=== PATIENT | female | born 1960 | race African-American/Black ===

== ENCOUNTER 2020-06-13 19:30 | Inpatient (IN) | payer MEDICAID ==
[~2020-06-13] VITALS: Ht 162.6 cm; Wt 66.7 kg
[2020-06-13] MEDS ORDERED: SODIUM CHLORIDE 0.9% 1,000 ML IV ONE ×2 (20:47→21:29)
[2020-06-13 20:53] LABS: BASOPHILS % 0.5 % (0.0-2.0); EOSINOPHILS % 0.1 % (0.0-5.0); HEMATOCRIT. 36.3 % (36.0-48.0); LYMPHOCYTES % 9.9 % (20.0-50.0); MEAN CORPUSCULAR HEMOGLOBIN 29.5 pg (28.0-32.0); MEAN PLATELET VOLUME 7.7 fl (7.4-10.4); MONOCYTES % 3.2 % (2.0-8.0); NEUTROPHILS % 86.3 % (40.0-76.0); PLATELET 295 x1000/uL (130-400); RED BLOOD CELL COUNT 4.08 mill/uL (4.2-5.4); RED CELL DISTRIBUTION WIDTH 13.8 % (11.6-14.6)
[2020-06-13 20:55] LABS: CHLORIDE 95 mEq/L (98-107)
[2020-06-13 20:59] LABS: ETHANOL BLOOD < 10 mg/dL
[2020-06-13] MEDS ORDERED: INSULIN REGULAR (HUMULIN R) UD 100 UNITS/ML SYR SUBCUT ONE (21:30)
[2020-06-13] MEDS ORDERED: IOHEXOL-350 100 ML BOTTLE ONE (21:52)
[2020-06-13] MEDS ORDERED: INSULIN REGULAR (HUMULIN R) 300UNITS/3ML SUBCUT NR (22:30)
[2020-06-14] MEDS ORDERED: INSULIN REGULAR (HUMULIN R) 300UNITS/3ML SUBCUT NR (01:00)
[2020-06-14 01:11] LABS: CLARITY URINE CLEAR (CLEAR); COLOR URINE YELLOW (YELLOW); KETONES URINE TRACE (NEGATIVE); LEUKOCYTE ESTERASE URINE NEGATIVE (NEGATIVE); NITRITE URINE NEGATIVE (NEGATIVE); OCCULT BLOOD URINE NEGATIVE (NEGATIVE); PROTEIN URINE NEGATIVE (NEGATIVE); SPECIFIC GRAVITY URINE 1.035 (1.005-1.030); UROBILINOGEN URINE 0.2 E.U./dL (0.2-1.0)
[2020-06-14 01:21] LABS: *AMPHETAMINES SCREEN URINE NEGATIVE (NEGATIVE); *BARBITURATES SCREEN URINE NEGATIVE (NEGATIVE); *BENZODIAZEPINES SCREEN URINE NEGATIVE (NEGATIVE); *COCAINE SCREEN URINE NEGATIVE (NEGATIVE); METHADONE URINE SCREEN NEGATIVE (NEGATIVE); OPIATES URINE SCREEN NEGATIVE (NEGATIVE); PHENCYCLIDINE URINE SCREEN NEGATIVE (NEGATIVE)
[2020-06-14 01:22] LABS: CANNABINOID URINE SCREEN NEGATIVE (NEGATIVE)
[2020-06-14 08:00] VITALS: BP 130/73
[2020-06-14 08:05] VITALS: BP 130/73
[2020-06-14] MEDS ORDERED: DEXTROSE 50% WATER 50ML SYRINGE IV PRN (08:15)
[2020-06-14] MEDS: ACETAMINOPHEN 325MG TABLET PO PRN ×3 (09:41→21:16)
[2020-06-14 10:50] LABS: LDL CHOLESTEROL 149 mg/dL (5-100)
[2020-06-14 10:52] LABS: HDL CHOLESTEROL 71 mg/dL (40-59)
[2020-06-14 12:00] VITALS: BP 122/65
[2020-06-14] MEDS: BLOOD SUGAR DIAGNOSTIC STRIP TEST SCH ×3 (12:33→21:08)
[2020-06-14] MEDS: SODIUM CHLORIDE 0.9% 1,000 ML IV SCH ×2 (12:43→19:00)
[2020-06-14] MEDS: INSULIN LISPRO 100 UNITS/ML SUBCUT SCH ×3 (12:43→21:24)
[2020-06-14] MEDS ORDERED: ONDANSETRON HCL 4MG/2ML INJ IV PRN (15:00)
[2020-06-14 16:00] VITALS: BP 147/78
[2020-06-14] MEDS ORDERED: INSULIN GLARGINE UD 100 UNITS/ML SYR SUBCUT NR (16:30)
[2020-06-14] MEDS: KETOROLAC 15MG/ML VIAL IV PRN (17:11)
[2020-06-14 20:00] VITALS: BP_SYST 140; BP_SYST 142; BP_SYST 157; BP_DIAS 69; BP_DIAS 76; BP_DIAS 88
[2020-06-14] MEDS ORDERED: ATORVASTATIN CALCIUM 20MG TABLET PO SCH (21:00)
[2020-06-15] VITALS (9 sets, daily range): BP systolic 138–171; BP diastolic 72–87
[2020-06-15] MEDS: SODIUM CHLORIDE 0.9% 1,000 ML IV SCH ×2 (00:20→10:42)
[2020-06-15] MEDS: ACETAMINOPHEN 325MG TABLET PO PRN ×2 (03:45→09:50)
[2020-06-15] MEDS: BLOOD SUGAR DIAGNOSTIC STRIP TEST SCH ×3 (06:20→17:40)
[2020-06-15 06:29] LABS: BASOPHILS % 0.5 % (0.0-2.0); HEMATOCRIT. 29.7 % (36.0-48.0); HEMOGLOBIN. 10.1 g/dL (12.0-16.0); LYMPHOCYTES % 50.2 % (20.0-50.0); MEAN CORPUSCULAR HEMOGLOBIN 29.6 pg (28.0-32.0); MEAN CORPUSCULAR VOLUME 87.3 fL (81.0-99.0); MEAN PLATELET VOLUME 7.7 fl (7.4-10.4); MONOCYTES % 10.3 % (2.0-8.0); PLATELET 245 x1000/uL (130-400)
[2020-06-15 06:31] LABS: CHLORIDE 104 mEq/L (98-107)
[2020-06-15] MEDS: INSULIN LISPRO 100 UNITS/ML SUBCUT SCH ×3 (06:34→17:46)
[2020-06-15] MEDS ORDERED: INSULIN GLARGINE UD 100 UNITS/ML SYR SUBCUT SCH ×2 (10:00→22:00)
[2020-06-15] MEDS ORDERED: LISINOPRIL 5MG TABLET PO SCH (11:00)
[2020-06-15] MEDS ORDERED: METF-416 MT (12:07)
[2020-06-15] MEDS ORDERED: LANTUSUD SUBCUT (12:07)
[2020-06-15] MEDS ORDERED: LOSA50TA41 MT (12:07)
[2020-06-15] MEDS ORDERED: LIP40 PO (12:07)
[2020-06-15] MEDS: KETOROLAC 15MG/ML VIAL IV PRN (12:13)
[2020-06-15] MEDS ORDERED: SUMATRIPTAN SUCCINATE 6MG/0.5ML VIAL SUBCUT NR (14:00)
[2020-06-15] MEDS ORDERED: LOSARTAN POTASSIUM 50 MG TABLET PO SCH (15:30)
[2020-06-15] MEDS ORDERED: CLONIDINE 0.1MG TABLET PO NR (19:00)
[2020-06-15] MEDS ORDERED: ATORVASTATIN CALCIUM 40MG TABLET PO SCH (21:00)
== END 2020-06-15 20:40 | disposition home or self-care (01) | DRG 48 ==
LOC: ER 19:30 → MICUSO 23:47 → 5WST 06-14 02:22
PROVIDERS: ADMIT Internal Medicine; ATTEND Internal Medicine
DX: G90.8 Other disorders of autonomic nervous system (principal); E11.65 Type 2 diabetes mellitus with hyperglycemia; E78.5 Hyperlipidemia, unspecified; E87.1 Hypo-osmolality and hyponatremia; E87.5 Hyperkalemia; E87.8 Other disorders of electrolyte and fluid balance, not elsewhere classified; E86.0 Dehydration; I10 Essential (primary) hypertension; R19.7 Diarrhea, unspecified; E66.9 Obesity, unspecified; Z68.25 Body mass index [BMI] 25.0-25.9, adult; E11.00 Type 2 diabetes mellitus with hyperosmolarity without nonketotic hyperglycemic-hyperosmolar coma (NKHHC)
CPT/HCPCS: 36415; 71045; 71275; 80048; 80053; 80061; 80305; 80320; 81003; 82947; 82962; 83036; 84443; 84484; 85025; 85379; 93005; 93306; 93880; 96372; 99285; J1815; J1885; J2405; J3030; J7030; Q9967; G0480

== ENCOUNTER 2021-12-23 18:39 | Inpatient (IN) | payer MEDICAID, OTHER ==
[~2021-12-23] VITALS: Ht 162.6 cm; Wt 69.1 kg
[~2021-12-23 18:39] MED LIST: LANTUSUD SUBCUT; LIP40 PO; LOSA50TA41 MT; METF-416 MT
[2021-12-23 19:34] LABS: BASOPHILS % 0.8 % (0.0-2.0); EOSINOPHILS % 0.6 % (0.0-5.0); HEMATOCRIT. 31.8 % (36.0-48.0); HEMOGLOBIN. 10.7 g/dL (12.0-16.0); LYMPHOCYTES % 20.9 % (20.0-50.0); MEAN CORPUSCULAR VOLUME 89.3 fL (81.0-99.0); MONOCYTES % 7.5 % (2.0-8.0); NEUTROPHILS % 70.2 % (40.0-76.0); PLATELET 365 x1000/uL (130-400); RED BLOOD CELL COUNT 3.56 mill/uL (4.2-5.4); RED CELL DISTRIBUTION WIDTH 15.1 % (11.6-14.6)
[2021-12-23 19:39] LABS: CHLORIDE 103 mEq/L (98-107)
[2021-12-23] MEDS ORDERED: ACETAMINOPHEN 325MG TABLET PO ONE (20:00)
[2021-12-23 20:43] LABS: CLARITY URINE CLOUDY (CLEAR); COLOR URINE YELLOW (YELLOW); KETONES URINE NEGATIVE (NEGATIVE); LEUKOCYTE ESTERASE URINE NEGATIVE (NEGATIVE); NITRITE URINE NEGATIVE (NEGATIVE); OCCULT BLOOD URINE NEGATIVE (NEGATIVE); PROTEIN URINE TRACE (NEGATIVE); UROBILINOGEN URINE 0.2 E.U./dL (0.2-1.0)
[2021-12-23] MEDS ORDERED: SODIUM CHLORIDE 0.9% 1,000 ML IV ONE (21:15)
[2021-12-23] MEDS ORDERED: AZITHROMYCIN 500MG/250ML 250 ML IV ONE (22:45)
[2021-12-23] MEDS ORDERED: CEFTRIAXONE 1 G PREMIX 50 ML IV ONE (22:45)
[2021-12-23] MEDS ORDERED: AZITHROMYCIN 500 MG in DEXT 5% WATER 250 ML IV NR (23:15)
[2021-12-24] MEDS ORDERED: ONDANSETRON HCL 4MG/2ML INJ IV PRN (01:30)
[2021-12-24] MEDS ORDERED: HYDROCODONE/ACETAMINOPHEN 5/325MG TABLET PO PRN (08:00)
[2021-12-24] MEDS ORDERED: NALOXONE HCL 0.4MG/ML VIAL IV PRN (08:15)
[2021-12-24] MEDS ORDERED: CLONIDINE 0.2MG TABLET PO PRN (21:15)
[2021-12-24 22:38] VITALS: BP 127/65
[2021-12-24] MEDS ORDERED: DEXTROSE 50% WATER 50ML SYRINGE IV PRN (23:15)
[2021-12-24] MEDS ORDERED: ACETAMINOPHEN 325MG TABLET PO PRN (23:15)
[2021-12-25 04:00] VITALS: BP 128/65
[2021-12-25] MEDS: INSULIN LISPRO 100 UNITS/ML SUBCUT SCH ×2 (05:41→13:21)
[2021-12-25] MEDS: BLOOD SUGAR DIAGNOSTIC STRIP TEST SCH ×2 (05:41→12:10)
[2021-12-25 07:26] LABS: BASOPHILS % 0.6 % (0.0-2.0); EOSINOPHILS % 2.9 % (0.0-5.0); HEMATOCRIT. 30.2 % (36.0-48.0); LYMPHOCYTES % 40.3 % (20.0-50.0); MEAN CORPUSCULAR HEMOGLOBIN 29.3 pg (28.0-32.0); MEAN CORPUSCULAR VOLUME 88.5 fL (81.0-99.0); MEAN PLATELET VOLUME 7.1 fl (7.4-10.4); MONOCYTES % 13.3 % (2.0-8.0); NEUTROPHILS % 42.9 % (40.0-76.0); PLATELET 358 x1000/uL (130-400); RED BLOOD CELL COUNT 3.42 mill/uL (4.2-5.4); RED CELL DISTRIBUTION WIDTH 15.5 % (11.6-14.6)
[2021-12-25] MEDS ORDERED: METFORMIN HCL 500MG TABLET PO SCH (07:40)
[2021-12-25 07:49] LABS: CHLORIDE 108 mEq/L (98-107)
[2021-12-25 07:59] LABS: LDL CHOLESTEROL 57 mg/dL (5-100)
[2021-12-25 08:00] VITALS: BP 165/82
[2021-12-25 08:02] LABS: HDL CHOLESTEROL 63 mg/dL (40-59)
[2021-12-25] MEDS ORDERED: LOSARTAN POTASSIUM 50 MG TABLET PO SCH ×2 (09:00)
[2021-12-25 12:00] VITALS: BP 149/80
[2021-12-25 13:34] VITALS: BP 149/80
[2021-12-25] MEDS ORDERED: ATORVASTATIN CALCIUM 40MG TABLET PO SCH ×2 (21:00)
== END 2021-12-25 15:30 | disposition home or self-care (01) | DRG 420 ==
LOC: ER 18:39 → 8WST 23:22 → ENRESERV 12-24 20:51
PROVIDERS: ADMIT Internal Medicine; ATTEND Internal Medicine
DX: E11.649 Type 2 diabetes mellitus with hypoglycemia without coma (principal); D64.9 Anemia, unspecified; S05.11XA Contusion of eyeball and orbital tissues, right eye, initial encounter; W18.39XA Other fall on same level, initial encounter; Z20.822 Contact with and (suspected) exposure to COVID-19; I10 Essential (primary) hypertension; Z79.4 Long term (current) use of insulin; Y93.89 Activity, other specified; Y92.89 Other specified places as the place of occurrence of the external cause; Y99.8 Other external cause status; Z79.84 Long term (current) use of oral hypoglycemic drugs; Z79.899 Other long term (current) drug therapy
CPT/HCPCS: 36415; 71045; 80048; 80061; 81003; 82962; 83036; 83880; 84484; 85025; 87426; 93005; 96361; 96365; 96367; 99285; J0456; J0696; J1815; J2405; J7030; J7060

== ENCOUNTER 2022-10-19 18:29 | Inpatient (IN) | payer OTHER ==
[~2022-10-19] VITALS: Ht 162.6 cm; Wt 65.0 kg
[~2022-10-19 18:29] MED LIST changes: -LANTUSUD SUBCUT
[2022-10-19] MEDS ORDERED: SODIUM CHLORIDE 0.9% 1,000 ML IV ONE (19:30)
[2022-10-19 21:45] LABS: BASOPHILS % 0.4 % (0.0-2.0); EOSINOPHILS % 0.2 % (0.0-5.0); HEMATOCRIT. 33.2 % (36.0-48.0); HEMOGLOBIN. 11.1 g/dL (12.0-16.0); LYMPHOCYTES % 31.1 % (20.0-50.0); MEAN CORPUSCULAR HEMOGLOBIN 29.6 pg (28.0-32.0); MEAN CORPUSCULAR VOLUME 88.8 fL (81.0-99.0); MEAN PLATELET VOLUME 7.1 fl (7.4-10.4); NEUTROPHILS % 60.3 % (40.0-76.0); PLATELET 383 x1000/uL (130-400); RED BLOOD CELL COUNT 3.74 mill/uL (4.2-5.4); RED CELL DISTRIBUTION WIDTH 13.6 % (11.6-14.6)
[2022-10-19 21:53] LABS: CHLORIDE 101 mEq/L (98-107); INR 1.1; PROTHROMBIN TIME 11.4 sec (9.6-11.0)
[2022-10-20] VITALS (11 sets, daily range): BP systolic 114–167; BP diastolic 66–95
[2022-10-20] MEDS ORDERED: LORAZEPAM 0.5MG TABLET PO PRN (13:15)
[2022-10-20] MEDS ORDERED: ACETAMINOPHEN 325MG TABLET PO PRN (13:15)
[2022-10-20] MEDS ORDERED: HYDROCODONE/ACETAMINOPHEN 10/325MG TABLET PO PRN (13:15)
[2022-10-20] MEDS ORDERED: HYDROCODONE/ACETAMINOPHEN 5/325MG TABLET PO PRN (13:15)
[2022-10-20] MEDS ORDERED: ONDANSETRON HCL 4MG/2ML INJ IV PRN (13:15)
[2022-10-20] MEDS ORDERED: IPRATROPIUM/ALBUTEROL 0.5-3(2.5)MG/3ML NEB HHN PRN (13:15)
[2022-10-20] MEDS ORDERED: NALOXONE HCL 0.4MG/ML VIAL IV PRN (13:30)
[2022-10-20] MEDS ORDERED: DEXTROSE 50% WATER 50ML SYRINGE IV PRN (14:45)
[2022-10-20] MEDS: ACETAMINOPHEN 325MG TABLET PO PRN ×2 (16:00→23:04)
[2022-10-20] MEDS: LOSARTAN POTASSIUM 50 MG TABLET PO SCH (16:01)
[2022-10-20] MEDS: BLOOD SUGAR DIAGNOSTIC STRIP TEST SCH ×2 (17:55→21:24)
[2022-10-20] MEDS: INSULIN LISPRO 100 UNITS/ML SUBCUT SCH ×2 (17:58→22:06)
[2022-10-20] MEDS ORDERED: ATORVASTATIN CALCIUM 40MG TABLET PO SCH (21:00)
[2022-10-20 22:44] LABS: CLARITY URINE CLEAR (CLEAR); COLOR URINE YELLOW (YELLOW); KETONES URINE NEGATIVE (NEGATIVE); LEUKOCYTE ESTERASE URINE NEGATIVE (NEGATIVE); NITRITE URINE NEGATIVE (NEGATIVE); OCCULT BLOOD URINE NEGATIVE (NEGATIVE); PROTEIN URINE 3+ (NEGATIVE); SPECIFIC GRAVITY URINE 1.015 (1.005-1.030); UROBILINOGEN URINE 0.2 E.U./dL (0.2-1.0)
[2022-10-20 23:07] LABS: *AMPHETAMINES SCREEN URINE NEGATIVE (NEGATIVE); *BARBITURATES SCREEN URINE NEGATIVE (NEGATIVE); *BENZODIAZEPINES SCREEN URINE NEGATIVE (NEGATIVE); *COCAINE SCREEN URINE NEGATIVE (NEGATIVE); CANNABINOID URINE SCREEN NEGATIVE (NEGATIVE); METHADONE URINE SCREEN NEGATIVE (NEGATIVE); OPIATES URINE SCREEN NEGATIVE (NEGATIVE); PHENCYCLIDINE URINE SCREEN NEGATIVE (NEGATIVE)
[2022-10-21 00:19] VITALS: BP 118/68
[2022-10-21 02:19] VITALS: BP 123/71
[2022-10-21 04:00] VITALS: BP 106/71
[2022-10-21] MEDS: BLOOD SUGAR DIAGNOSTIC STRIP TEST SCH ×2 (06:11→13:07)
[2022-10-21] MEDS: ACETAMINOPHEN 325MG TABLET PO PRN ×2 (06:12→10:50)
[2022-10-21] MEDS ORDERED: PANTOPRAZOLE 40MG DR TABLET PO SCH (06:50)
[2022-10-21 07:03] LABS: BASOPHILS % 0.4 % (0.0-2.0); EOSINOPHILS % 1.5 % (0.0-5.0); HEMATOCRIT. 29.7 % (36.0-48.0); HEMOGLOBIN. 10.1 g/dL (12.0-16.0); MEAN CORPUSCULAR VOLUME 88.6 fL (81.0-99.0); MEAN PLATELET VOLUME 7.5 fl (7.4-10.4); MONOCYTES % 9.1 % (2.0-8.0); PLATELET 328 x1000/uL (130-400); RED BLOOD CELL COUNT 3.36 mill/uL (4.2-5.4); RED CELL DISTRIBUTION WIDTH 13.5 % (11.6-14.6)
[2022-10-21 07:31] LABS: T4 FREE 0.86 ng/dL (0.76-1.46)
[2022-10-21 08:24] VITALS: BP 131/79
[2022-10-21] MEDS: LOSARTAN POTASSIUM 50 MG TABLET PO SCH (08:56)
[2022-10-21] MEDS: INSULIN LISPRO 100 UNITS/ML SUBCUT SCH ×2 (08:57→14:18)
== END 2022-10-21 15:41 | disposition home or self-care (01) | DRG 199 ==
LOC: ER 18:29 → 3WST 10-20 01:41 → EDBEDREQ 10-20 01:43
PROVIDERS: ADMIT Internal Medicine; ATTEND Internal Medicine
DX: I16.0 Hypertensive urgency (principal); N17.0 Acute kidney failure with tubular necrosis; E11.9 Type 2 diabetes mellitus without complications; R51.9 Headache, unspecified; R29.6 Repeated falls; Z20.822 Contact with and (suspected) exposure to COVID-19; Z79.899 Other long term (current) drug therapy; Z83.3 Family history of diabetes mellitus; Z79.84 Long term (current) use of oral hypoglycemic drugs
CPT/HCPCS: 36415; 71045; 74176; 80048; 80053; 80305; 81003; 82962; 83036; 83605; 84439; 84443; 84484; 85025; 86850; 86900; 87426; 93005; 99291; J1815; J7030